=== PATIENT | female | born 1975 | race Caucasian/White ===

== ENCOUNTER 2016-12-04 13:12 | Emergency (ER) | payer OTHER ==
[~2016-12-04] VITALS: Ht 162.6 cm; Wt 70.0 kg
[2016-12-04 13:24] VITALS: BP 130/75
[2016-12-04 14:16] LABS: BASOPHILS # (AUTO) 0.6 K/uL (0.00-0.22); EOSINOPHILS # (AUTO) 0.3 K/uL (0-0.4); HEMATOCRIT 44.6 % (36-48); HEMOGLOBIN 14.4 g/dL (12.0-16.0); LYMPHOCYTES # (AUTO) 1.9 K/uL (2.5-16.5); MEAN CORPUSCULAR HEMOGLOBIN 28 pg (27-31); MEAN CORPUSCULAR HGB CONC 32 g/dL (33-37); MEAN CORPUSCULAR VOLUME 87 fL (80-94); MONOCYTES # (AUTO) 0.6 K/uL (0.8-1.0); PLATELET COUNT (AUTO) 238 K/uL (140-450); RED BLOOD CELL COUNT(AUTO) 5.15 MIL/uL (4.20-5.40); RED CELL DISTRIBUTION WIDTH 13.4 % (11.6-13.7); WHITE BLOOD COUNT (AUTO) 11.4 K/uL (4.8-10.8)
[2016-12-04 14:39] LABS: APPEARANCE,URINE HAZY (CLEAR); BILIRUBIN,URINE NEGATIVE (NEGATIVE); BLOOD, URINE 3+ (NEGATIVE); COLOR,URINE RED (YELLOW); LEUKOCYTE ESTERASE ,URINE TRACE (NEGATIVE); NITRITE, URINE NEGATIVE (NEGATIVE); PH,URINE 5.5 (5.0-9.0); PROTEIN,URINE 2+ (NEGATIVE); UGLUCOSE NEGATIVE (NEGATIVE); UROBILINOGEN,URINE 0.2 EU/dL (0.2 - 1)
--- NOTE | 2016-12-04 14:46 | NUR ---
Patient ambulated to bed 03.
--- NOTE | 2016-12-04 14:47 | NUR ---
41/F BIB SELF C/O VAG BLEEDING & LOWER ABD & LOWER BACK PAIN X YESTERDAY . PT STS 7 WEEKS. DENIES N/V/D; SKIN IS PINK/WARM/DRY; AAOX4 WITH EVEN AND STEADY GAIT; LUNGS CLEAR BL; HR EVEN AND REGULAR; PT DENIES ANY FEVER, CP, SOB, OR COUGH AT THIS TIME; PATIENT STATES PAIN OF 8/10 AT THIS TIME; VSS; PATIENT POSITIONED FOR COMFORT; HOB ELEVATED; BEDRAILS UP X2; BED DOWN. ER MD MADE AWARE OF PT STATUS.
[2016-12-04 14:49] LABS: RBC,URINE TOO NUMEROUS TO COUN /HPF (0-5)
[2016-12-04 14:50] LABS: BACTERIA,URINE 1+ /HPF (None Seen)
--- NOTE | 2016-12-04 15:23 | NUR ---
Dr. Elmore evaluating patient at bedside. Addendum: 12/04/16 at 1542 by [email or web address] PT STATES 'DON'T WANT PAIN MED.
[2016-12-04 15:40] VITALS: BP 114/76
== END 2016-12-04 15:40 | disposition home or self-care (01) ==
LOC: MED 13:12
DX: O03.9 Complete or unspecified spontaneous abortion without complication (principal); O23.41 Unspecified infection of urinary tract in pregnancy, first trimester; I10 Essential (primary) hypertension; Z90.49 Acquired absence of other specified parts of digestive tract; Z90.89 Acquired absence of other organs; Z3A.01 Less than 8 weeks gestation of pregnancy
CPT/HCPCS: 36415; 81001; 81025; 84702; 85025; 86900; 86901; 99284

== ENCOUNTER 2018-04-23 21:34 | Emergency (ER) | payer OTHER ==
[~2018-04-23] VITALS: Ht 165.1 cm; Wt 66.2 kg
[2018-04-23 21:49] VITALS: BP 124/78
--- NOTE | 2018-04-23 21:49 | NUR ---
TO BED # 9 AMBULATORY, REPORT GIVEN TO SURENDRA MURRELL
--- NOTE | 2018-04-23 22:06 | NUR ---
43/F PRESENTS IN ED WITH SIGNIFICANT OTHER, C/O 9/10 PRESSURE-LIKE EPIGASTRIC PAIN, RADIATING TO R MID BACK, EXACERBATED BY DEEP BREATHS AND COUGH, X2 DAYS. PT REPORTS INTERMITTENT SOB. PT DENIES FEVER, N/V/D, CONSTIPATION OR DYSURIA. AOX4, GCS 15, AMBULATORY, RR EVEN AND UNLABORED. LUNG SOUNDS CLEAR BL. BS ACTIVE X4, ABD SOFT ROUND NONTENDER. HX CHOLECYSTECTOMY (10 YEARS AGO)
--- NOTE | 2018-04-23 22:17 | NUR ---
Dr. Elmore evaluating patient at bedside.
[2018-04-23] MEDS ORDERED: DICYCLOMINE HCL LIQUID 20 MG, ALUMINUM HYD/MAG/SIMETHICONE 30 ML, LIDOCAINE VISCOUS 2% ... PO ONE ×3 (22:20)
[2018-04-23] MEDS ORDERED: KETOROLAC 60 MG/2 ML VIAL IM ONE (22:55)
[2018-04-23 23:19] VITALS: BP 122/72
--- NOTE | 2018-04-23 23:19 | NUR ---
Patient discharged with v/s stable. Written and verbal after care instructions given and explained. Patient alert, oriented and verbalized understanding of instructions. Ambulatory with steady gait. All questions addressed prior to discharge. ID band removed. Patient advised to follow up with PMD. Rx of MOTRIN, PRILOSEC given. Patient educated on indication of medication including possible reaction and side effects. Opportunity to ask questions provided and answered.
== END 2018-04-23 23:19 | disposition home or self-care (01) ==
LOC: MED 21:34
DX: R10.13 Epigastric pain (principal); I10 Essential (primary) hypertension; Z90.49 Acquired absence of other specified parts of digestive tract; Z90.89 Acquired absence of other organs
CPT/HCPCS: 81002; 81025; 96372; 99283; J1885

== ENCOUNTER 2018-07-22 13:56 | Emergency (ER) | payer OTHER ==
[~2018-07-22] VITALS: Ht 165.1 cm; Wt 66.2 kg
[2018-07-22 14:06] VITALS: BP 138/59
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
--- NOTE | 2018-07-22 16:00 | NUR ---
Patient noted to have existing wounds upon arrival to ER. Wound covered with dressing. Physician informed.
[2018-07-22 16:30] VITALS: BP 133/60
== END 2018-07-22 16:30 | disposition home or self-care (01) ==
LOC: MED 13:56
DX: S61.012A Laceration without foreign body of left thumb without damage to nail, initial encounter (principal); X78.8XXA Intentional self-harm by other sharp object, initial encounter; Y93.89 Activity, other specified; Y92.89 Other specified places as the place of occurrence of the external cause; Y99.8 Other external cause status
CPT/HCPCS: 73140; 90471; 90715; 99283; Q0092

== ENCOUNTER 2018-10-18 21:24 | Emergency (ER) | payer OTHER ==
[~2018-10-18] VITALS: Ht 160 cm; Wt 75.3 kg
[2018-10-18 21:31] VITALS: BP 123/82
--- NOTE | 2018-10-18 21:36 | NUR ---
PT AMBULATED BACK TO [facility]
--- NOTE | 2018-10-18 21:58 | NUR ---
PT AMBULATED TO BED #11
--- NOTE | 2018-10-18 22:06 | NUR ---
DR. LLOYD EVALUATING PT BEDSIDE
--- NOTE | 2018-10-18 22:15 | NUR ---
X-RAY AT BEDSIDE.
[2018-10-18] MEDS ORDERED: HYDROcodone/APAP 5/325 MG 1 TAB TAB PO ONE (22:35)
[2018-10-18 22:48] VITALS: BP 128/81
--- NOTE | 2018-10-18 22:48 | NUR ---
Patient discharged with v/s stable. Written and verbal after care instructions given and explained. Patient alert, oriented and verbalized understanding of instructions. Ambulatory with steady gait. All questions addressed prior to discharge. ID band removed. Patient advised to follow up with PMD. Rx of NORCO AND MOTRIN given. Patient educated on indication of medication including possible reaction and side effects. Opportunity to ask questions provided and answered.
== END 2018-10-18 22:48 | disposition home or self-care (01) ==
LOC: MED 21:24
DX: S92.511A Displaced fracture of proximal phalanx of right lesser toe(s), initial encounter for closed fracture (principal); I10 Essential (primary) hypertension; W22.8XXA Striking against or struck by other objects, initial encounter; Y93.66 Activity, soccer; Y92.832 Beach as the place of occurrence of the external cause; Y99.8 Other external cause status
CPT/HCPCS: 73660; 99283; Q0092

== ENCOUNTER 2019-04-13 12:37 | Emergency (ER) | payer OTHER ==
[~2019-04-13] VITALS: Ht 165.1 cm; Wt 74.0 kg
[2019-04-13 12:45] VITALS: BP 136/83
--- NOTE | 2019-04-13 12:52 | NUR ---
Patient ambulated to bed 10. RN evaluating patient at bedside.
--- NOTE | 2019-04-13 13:01 | NUR ---
PATIENT PRESENTS TO ED C/O PROGRESSIVE UPPER BACK PAIN X 1 MONTH. STATES THAT PAIN IS PRESSURE-LIKE, 10/10, WORST IN THE MORNING. PT ALSO HAS CP AND SOB WHICH SHE RELATES TO CONGESTION. DENIES ANY INJURIES. -FEVER, COUGH, N/V/D. PT ABLE TO AMBULATE, WITH STEADY WALK AND ABLE TO TURN FROM SIDE TO SIDE. VSS; PATIENT POSITIONED FOR COMFORT; HOB ELEVATED; BEDRAILS UP X2; BED DOWN. ER MD MADE AWARE OF PT STATUS. PMH: BRONHITIS, ASTHMA MEDS: NONE ALLERGIES: NONE LMP: 03/25/19
--- NOTE | 2019-04-13 13:07 | NUR ---
radiation control technician at bedside.
[2019-04-13] MEDS ORDERED: IBUPROFEN 600 MG TAB PO ONE (13:25)
[2019-04-13 13:43] LABS: BASOPHILS % (AUTO) 0.4 % (0.0-2.0); EOSINOPHILS # (AUTO) 0.3 K/uL (0-0.4); HEMATOCRIT 41.5 % (36-48); HEMOGLOBIN 13.6 g/dL (12.0-16.0); LYMPHOCYTES # (AUTO) 2.4 K/uL (2.5-16.5); MEAN CORPUSCULAR HEMOGLOBIN 29 pg (27-31); MEAN CORPUSCULAR HGB CONC 33 g/dL (33-37); MONOCYTES # (AUTO) 0.7 K/uL (0.8-1.0); MONOCYTES % (AUTO) 7.3 % (1.7-9.3); NEUTROPHILS # (AUTO) 6.1 K/uL (1.8-7.7); NEUTROPHILS % (AUTO) 64.3 % (42.2-75.2); PLATELET COUNT (AUTO) 261 K/uL (140-450); RED BLOOD CELL COUNT(AUTO) 4.72 MIL/uL (4.20-5.40); RED CELL DISTRIBUTION WIDTH 14.5 % (11.6-13.7); WHITE BLOOD COUNT (AUTO) 9.5 K/uL (4.8-10.8)
--- NOTE | 2019-04-13 13:53 | NUR ---
Patient transferred to chair B.
[2019-04-13 14:30] LABS: ANION GAP 16.5 (8-16); CARBON DIOXIDE 25.4 mmol/L (21-32); CREATININE 0.8 mg/dL (0.6-1.3); POTASSIUM 3.9 mmol/L (3.5-5.1)
[2019-04-13 14:36] LABS: ALBUMIN 3.6 g/dL (3.4-5.0); TOTAL BILIRUBIN 0.3 mg/dL (0.0-1.0)
[2019-04-13] MEDS ORDERED: predniSONE 20 MG TAB PO ONE (14:45)
[2019-04-13] MEDS ORDERED: ALBUTEROL SULFATE/IPRATROPIU 3 ML SOL IH ONE (14:45)
--- NOTE | 2019-04-13 15:20 | NUR ---
PT STATES RELIEF OF SOB AT THIS TIME. RR EVEN AND UNLABORED. VSS. WILL CONTINUE TO MONITOR.
[2019-04-13] MEDS ORDERED: AZITHROMYCIN 250 MG TAB PO ONE (15:50)
--- NOTE | 2019-04-13 16:05 | NUR ---
Patient discharged with v/s stable. Written and verbal after care instructions given and explained. Patient alert, oriented and verbalized understanding of instructions. Ambulatory with steady gait. All questions addressed prior to discharge. ID band removed. Patient advised to follow up with PMD. Rx of ALBUTEROL, PREDNISONE, IBURPROFEN, AND AZYTHROMYCIN given. Patient educated on indication of medication including possible reaction and side effects. Opportunity to ask questions provided and answered.
[2019-04-13 16:06] VITALS: BP 136/83
== END 2019-04-13 16:05 | disposition home or self-care (01) ==
LOC: MED 12:37
DX: M54.6 Pain in thoracic spine (principal); R09.89 Other specified symptoms and signs involving the circulatory and respiratory systems; J45.909 Unspecified asthma, uncomplicated; I10 Essential (primary) hypertension
CPT/HCPCS: 36415; 71045; 80053; 81002; 81025; 84484; 84703; 85025; 85379; 94640; 99284; J7512; J7620; Q0092

== ENCOUNTER 2019-07-19 08:56 | Emergency (ER) | payer OTHER ==
[~2019-07-19] VITALS: Ht 165.1 cm; Wt 74.8 kg
[2019-07-19 09:20] VITALS: BP 125/87
--- NOTE | 2019-07-19 10:15 | NUR ---
C/O CONGESTION, THROAT PAIN, HEADACHE, BODYACHES X 1 WK.PT AWAKE , ALERT, AFIBRILE AMBULARORY WITH STEADY GAIT. SCE , CBS, CONGESTED TONSILS, SOFT NABS. HX--DENIES RX--NONE
--- NOTE | 2019-07-19 10:30 | NUR ---
dr crook at bedside evaluating pt.
[2019-07-19 10:37] VITALS: BP 125/87
--- NOTE | 2019-07-19 10:37 | NUR ---
Patient discharged with v/s stable. Written and verbal after care instructions given and explained regarding viral infection. Patient alert, oriented and verbalized understanding of instructions. Ambulatory with steady gait. All questions addressed prior to discharge. ID band removed. Patient advised to follow up with PMD. Rx claritin of given. Patient educated on indication of medication including possible reaction and side effects. Opportunity to ask questions provided and answered .Excuse from work give.
== END 2019-07-19 10:37 | disposition home or self-care (01) ==
LOC: MED 08:56
DX: B34.9 Viral infection, unspecified (principal); J45.909 Unspecified asthma, uncomplicated; I10 Essential (primary) hypertension; R56.9 Unspecified convulsions; Z98.890 Other specified postprocedural states
CPT/HCPCS: 99282

== ENCOUNTER 2021-06-11 07:25 | Emergency (ER) | payer OTHER ==
[~2021-06-11] VITALS: Ht 165.1 cm; Wt 64.4 kg
[2021-06-11 07:29] VITALS: BP 158/67
--- NOTE | 2021-06-11 07:31 | NUR ---
PT TO LOBBY VIA W/C.
--- NOTE | 2021-06-11 07:47 | NUR ---
46 Y/O FEMALE W/C ASSISTED C/O RIGHT LEG PAIN 10/10 RADIATES FROM HIP TO FOOT [id number]. PT STATES PAIN WORSENS WHEN AMBULATING. PT STATES SHE HAS AN APPT WITH PCP 06/13/21 BUT TODAY PAIN WAS UNBEARABLE. DENIES FEVER/CHILLS. DENIES N/V. PMH: SCIATICA NKA
--- NOTE | 2021-06-11 07:47 | NUR ---
DR. ARANGO WITH PT FOR FURTHER EVALUATION.
[2021-06-11] MEDS ORDERED: NAPR-1704 PO (07:52)
[2021-06-11] MEDS ORDERED: ACET-8386 PO (07:52)
--- NOTE | 2021-06-11 08:00 | NUR ---
Patient discharged with v/s stable. Written and verbal after care instructions ABOUT SCIATICA given and explained. Patient alert, oriented and verbalized understanding of instructions. Ambulatory with steady gait. All questions addressed prior to discharge. ID band removed. Patient advised to follow up with PMD. Rx of NORCO 5-325MG AND NAPROXEN given. Patient educated on indication of medication including possible reaction and side effects. Opportunity to ask questions provided and answered. PT D/C BY DR ARANGO
== END 2021-06-11 08:00 | disposition home or self-care (01) ==
LOC: MED 07:25
DX: M54.31 Sciatica, right side (principal); J45.909 Unspecified asthma, uncomplicated; I10 Essential (primary) hypertension; Z86.69 Personal history of other diseases of the nervous system and sense organs; Z79.1 Long term (current) use of non-steroidal anti-inflammatories (NSAID); Z79.891 Long term (current) use of opiate analgesic
CPT/HCPCS: 99283